=== PATIENT | male | born 1975 | race Caucasian/White ===

== ENCOUNTER 2017-07-08 14:53 | Emergency (ER) | payer OTHER ==
[~2017-07-08] VITALS: Ht 175.3 cm; Wt 114.8 kg
[2017-07-08] MEDS ORDERED: FORTAMET1000 MG (15:23)
[2017-07-08] MEDS ORDERED: PROZAC20 MG (15:23)
[2017-07-08] MEDS ORDERED: GLIMEPIRIDE4 MG PO (15:23)
[2017-07-08] MEDS ORDERED: AVAPRO150 MG (15:24)
== END 2017-07-08 21:15 | disposition home or self-care (01) ==
LOC: ER 14:53
DX: L02.212 Cutaneous abscess of back [any part, except buttock and flank] (principal)